=== PATIENT | female | born 1930 | race Hispanic/Latino ===

== ENCOUNTER 2018-01-09 06:11 | Inpatient (IN) | payer MEDICARE, BC ==
[2017-10-26 12:22] VITALS: BMI 25.4
[2018-01-09 07:02] LABS: PH,URINE 5.5 (4.7-8.0); URINE BILIRUBIN NEGATIVE (NEGATIVE); URINE BLOOD TRACE-INTACT (NEGATIVE); URINE GLUCOSE (UA) NEGATIVE (NEGATIVE); URINE LEUKOCYTE ESTERASE TRACE Leu/uL (NEGATIVE); URINE NITRATE NEGATIVE (NEGATIVE); URINE PROTEIN NEGATIVE mg/dL (<30 mg/dL); URINE UROBILINOGEN 0.2 E.U./dL (<1 E.U./dL)
[2018-01-09 07:03] LABS: URINE APPEARANCE CLEAR (CLEAR); URINE COLOR YELLOW (YELLOW)
[2018-01-09 07:15] LABS: INR 1.24 (0.93-1.08); PARTIAL THROMBOPLASTIN TIME 32.1 Seconds (25.1-36.5); PROTHROMBIN TIME 14.3 SECONDS (9.4-12.5)
--- NOTE | 2018-01-09 07:15 | CP.PCM.HP ---
History of Present Illness - History of Present Illness History of Present Illness: Pt is a 87 F who failed with conservative management and elected now for a right total knee replacement. Pt has no hx of bleeding disorders or blood clots Present on Admission - Present on Admission Any Indicators Present on Admission: No History of DVT/PE: No Review of Systems - Review of Systems Review of Systems: No recent illness - Musculoskeletal Musculoskeletal: As Per HPI Past Patient History - Infectious Disease Hx of Infectious Diseases: None - Past Social History Smoking Status: Never Smoked - CARDIAC Hx Cardiac Disorders: No Hx Pacemaker: No - PULMONARY Hx Respiratory Disorders: No - NEUROLOGICAL Hx Paralysis: No - HEENT Hx Cataracts: Yes - ENDOCRINE/METABOLIC Hx Endocrine Disorders: No - HEMATOLOGICAL/ONCOLOGICAL Hx Blood Disorders: No Hx Blood Transfusions: No Hx Blood Transfusion Reaction: No - MUSCULOSKELETAL/RHEUMATOLOGICAL Hx Falls: Yes Hx Osteoarthritis: Yes - GASTROINTESTINAL Hx Gastrointestinal Disorders: Yes (DIVERTICULOSIS,GI BLEED, MULTIPLE GASTRIC ULCER,DUODENAL ULCER,PYLORIC ULCE) Hx Ulcer: Yes - GENITOURINARY/GYNECOLOGICAL Hx Genitourinary Disorders: No Hx Reproductive Disorders: No - PSYCHIATRIC Hx Substance Use: No - SURGICAL HISTORY Hx Surgeries: Yes Hx Cataract Extraction: Yes - ANESTHESIA Hx Anesthesia Reactions: No Hx Malignant Hyperthermia: No Meds Allergies/Adverse Reactions: Allergies Allergy/AdvReac Type Severity Reaction Status Date / Time No Known Allergies Allergy Verified 12/19/17 12:28 Physical Exam - Constitutional Appears: Well, No Acute Distress - Head Exam Head Exam: ATRAUMATIC, NORMAL INSPECTION - Neck Exam Neck exam: Positive for: Full Rom, Normal Inspection - Respiratory Exam Respiratory Exam: NORMAL BREATHING PATTERN - Cardiovascular Exam Cardiovascular Exam: RRR - Extremities Exam Extremities exam: Positive for: normal inspection, pedal pulses present - Expanded Lower Extremities Exam Right Knee exam: normal inspection (no erythema, skin is intact. Calf soft nontender NVI distally ) - Neurological Exam Neurological exam: Alert, Oriented x3 - Psychiatric Exam Psychiatric exam: Normal Affect, Normal Mood - Skin Skin Exam: Dry, Intact, Normal Color, Warm Assessment & Plan (1) Primary osteoarthritis of right knee Assessment and Plan: NPO for right total knee replacement Repeat UA and BMP Type and screen Risks benefits and alternatives were discussed and patient verbalizes understanding and would like to proceed with a R TKA Status: Acute (2) GERD (gastroesophageal reflux disease) Status: Chronic
[2018-01-09] MEDS ORDERED: Bupivacaine 0.5% Inj(30mL) ONE ×2 (07:16→11:07)
[2018-01-09] MEDS ORDERED: Bupivacaine Liposomal Inj 20 ml INJ ONE (07:20)
[2018-01-09] MEDS ORDERED: Propofol 10 mg/ml Inj (20 ML) ONE (07:23)
[2018-01-09 07:25] LABS: URINE BACTERIA MANY (NEG)
[2018-01-09] MEDS ORDERED: Rocuronium 10 mg/ml (5 ml) ONE (07:25)
[2018-01-09] MEDS ORDERED: Succinylcholine 200 mg/10 ml Inj IV ONE (07:25)
[2018-01-09] MEDS ORDERED: Phenylephrine 10 mg/ml Inj ONE (07:25)
[2018-01-09 07:26] LABS: URINE AMORPHOUS SEDIMENT FEW
[2018-01-09] MEDS ORDERED: Bupivacaine Liposomal Inj 20 ml ONE (07:36)
[2018-01-09] MEDS ORDERED: Tranexamic Acid 2 ML ONE (07:36)
[2018-01-09 07:40] LABS: BLOOD UREA NITROGEN 17 mg/dL (7-21); CALCIUM 11.1 mg/dL (8.4-10.5); GFR AFRICAN-AMERICAN > 60; GFR NON-AFRICAN AMERICAN 52
[2018-01-09] MEDS ORDERED: cefTRIAXone (Rocephin) 1 gm Inj ONE (07:57)
[2018-01-09] MEDS ORDERED: Morphine 4 mg/ml ISec ONE (08:45)
[2018-01-09] MEDS ORDERED: Morphine 1 mg/ml preservative-free Inj(Duramorph) ONE (08:45)
[2018-01-09] MEDS ORDERED: Neostigmine Methylsulfate 3mg/3ml Syringe IV ONE ×2 (10:06)
[2018-01-09] MEDS ORDERED: Labetalol 5 mg/ml Inj 20ML ONE (10:30)
[2018-01-09] MEDS ORDERED: HYDROmorphone 0.5 mg/0.5 ml ISec IVP PRN ×2 (10:55→10:59)
[2018-01-09] MEDS ORDERED: Bupivacaine 0.25% Inj(30mL) ONE (11:23)
[2018-01-09] MEDS ORDERED: HYDROmorphone 0.5 mg/0.5 ml ISec ONE (11:29)
--- NOTE | 2018-01-09 12:21 | RAD ---
PROCEDURE: Right Knee Radiographs. HISTORY: s/p R TKA in PACU COMPARISON: None. FINDINGS: BONES: There is a right knee prosthesis in satisfactory alignment. There are no complicating factors JOINTS: Normal. No osteoarthritis. JOINT EFFUSION: None. OTHER FINDINGS: None. IMPRESSION: There is a right knee prosthesis in satisfactory alignment. There are no complicating factors
[2018-01-09] MEDS: Sodium Chloride 0.9% 1,000 ML IV SCH (12:45)
[2018-01-09] MEDS: ceFAZolin 2 GM in Sodium Chloride 0.9% 100 ML IVPB SCH (15:43)
[2018-01-09] MEDS: Multivitamin With Minerals Tab PO SCH (15:45)
--- NOTE | 2018-01-09 16:31 | PCM.SURG1 ---
Surgeon's Initial Post Op Note - Surgeon's Notes Surgeon: Gael Cummings MD Cardiac/Vascular Sonographer: Steven Parnell PA-C, Ruby Vega PA-C Type of Anesthesia: General Endo Anesthesia Administered By: Dr. Kaur Pre-Operative Diagnosis: Right knee DJD Operative Findings: tourniquet: 80 min @ 300mmHg Post-Operative Diagnosis: same Operation Performed: Right total knee replacement Specimen/Specimens Removed: bone Estimated Blood Loss: EBL {In ML}: 50 Blood Products Given: N/A Drains Used: Hemovac Post-Op Condition: Fair Date of Surgery/Procedure: 01/09/18 Time of Surgery/Procedure: 11:00
[2018-01-09] MEDS: Tranexamic Acid 1,000 MG in Sodium Chloride 0.9% 50 ML IV SCH ×2 (16:45→16:46)
[2018-01-09] MEDS: oxyCODONE 5 mg Immediate Release Tab PO PRN (18:05)
--- NOTE | 2018-01-09 21:18 | OP ---
PROCEDURE DATE: 01/09/2018 PREOPERATIVE DIAGNOSIS: Right knee arthritis. POSTOPERATIVE DIAGNOSIS: Right knee arthritis. PROCEDURE: Right total knee arthroplasty. SURGEON: Santos Cummings M.D. ASSISTANTS: Dr. Cummings is assisted by Christie Rosen, physician engineering assistant, as well as Wes Vega, physician engineering assistant. Both PA's were scrubbed and present throughout the entire case and assisted in patient positioning, retraction, and wound closure. TYPE OF ANESTHESIA: General. COMPLICATIONS: None. ESTIMATED BLOOD LOSS: 100 mL. INDICATIONS FOR PROCEDURE: This is an 87-year-old female with longstanding right knee pain. Clinical examination was consistent with some mild varus deformity, medial and lateral joint line tenderness, pain with patella grind, and pain at the extremes of knee flexion. Radiographic examination was consistent with advanced degenerative joint disease. After a period of failed nonsurgical management including activity modification, medication, steroid as well as viscosupplementation injections, recommendation was for a right knee arthroscopy. The risks, benefits, and alternatives of the procedure were discussed with the patient and informed consent was obtained. DESCRIPTION OF PROCEDURE: After the surgical site was signed and verified in the preoperative holding area, patient was taken to the operating room and placed supine on the operating room table. After administration of general anesthesia, patient received 1 g of Rocephin and 2 g of Ancef IV. Dalton catheter was inserted and tourniquet was placed about the right thigh. Care was taken to make sure all bony prominences and nerves were well padded and protected. Venodyne boot was placed on the nonoperative extremity and the right lower extremity was prepped and draped in the usual sterile fashion. The right lower extremity was then exsanguinated and the tourniquet was inflated. Approximately 10-cm longitudinal midline incision was made. Soft tissues were dissected sharply down to the knee joint. Medial parapatellar arthrotomy was performed and the anterior fat pad, menisci as well as ACL and PCL were all resected. Once the knee joint was adequately exposed, a step drill was used to drill into the medullary canal of the distal femur, and an intramedullary distal femoral cutting guide was inserted and pinned into place. Distal femoral resection was performed. Femoral component was sized and the 4-in-1 cutting block was pinned into place. Anterior and posterior resections were performed and then the box cut was performed on the femur. At this point, attention was then directed to the tibia. The extramedullary tibial guide was placed. Satisfied with the alignment, tibial resection was performed. Flexion and extension gaps were checked. Patient was noted to have full extension and flexion and stable with varus and valgus stress. At this point, the tibial component was sized and being careful to maintain proper rotation, the medullary canal of the proximal tibia was reamed and punched with the cruciate punch. At this point, with the trial tibia, trial femur, and a trial bearing in place, the knee was taken through range of motion and was noted to have full extension and flexion and stable throughout. Attention was then directed to the patella. Thickness of the patella was measured and patella resection was performed. Patellar button was sized, and the holes for patellar button were then drilled. A trial patella was placed and the knee was taken through range of motion. Patient was noted to have some mild lateral tilt and this was corrected by performing a lateral retinacular release. Once this was done, the knee was taken through range of motion and patella was noted to track normally. At this point, all the trial components were removed and the knee joint was pulse lavaged with antibiotic saline solution. The bony surfaces were dried. The actual tibial, femoral, and patellar components were cemented into place. Care was taken to make sure all excess cement was removed and the knee was held in full extension while the cement hardened. Once the cement had hardened, the wound was inspected for any debris and once again irrigated. At this point, the actual bearing was inserted and locked in placed with a cross pin. Tourniquet was deflated and any obvious bleeding was cauterized. The medium Hemovac drain was inserted and arthrotomy was closed using #1 Vicryl suture. The subcutaneous tissue was closed using 0 Vicryl and 2-0 Vicryl sutures and the skin was closed using kyree. A sterile dressing was applied and a knee immobilizer was placed. Patient was awakened and taken to the recovery room in stable condition. Santos Cummings MD
[2018-01-10] MEDS: ceFAZolin 2 GM in Sodium Chloride 0.9% 100 ML IVPB SCH (00:01)
[2018-01-10] MEDS: oxyCODONE 5 mg Immediate Release Tab PO PRN (00:04)
[2018-01-10 07:07] LABS: BASO # 0.01 K/mm3 (0.0-2.0); BASO % 0.1 % (0.0-3.0); GRAN # 8.8 (1.4-6.5); GRAN % 79.8 % (50.0-68.0); HEMOGLOBIN 9.9 g/dL (12.0-16.0); LYMPH # 1.2 (1.2-3.4); LYMPH % 10.8 % (22.0-35.0); MEAN CELL VOLUME 94.4 fl (80.0-105.0); MEAN CORPUSCULAR HEMOGLOBIN 30.8 pg (25.0-35.0); MEAN CORPUSCULAR HGB CONC 32.7 g/dl (31.0-37.0); MEAN PLATELET VOLUME 12.6 fl (7.0-11.0); MONO % 9.3 % (1.0-6.0); RBC 3.21 10^6/uL (3.5-6.1); RED CELL DISTRIBUTION WIDTH 12.6 % (11.5-14.5)
[2018-01-10 07:15] LABS: BLOOD UREA NITROGEN 16 mg/dL (7-21); CALCIUM 8.9 mg/dL (8.4-10.5); GFR AFRICAN-AMERICAN > 60; GFR NON-AFRICAN AMERICAN 59
[2018-01-10] MEDS: Sodium Chloride 0.9% 1,000 ML IV SCH (08:39)
[2018-01-10] MEDS ORDERED: Sodium Chloride 0.9% 500 ML IV STA (09:07)
[2018-01-10] MEDS: cefTRIAXone 1 gm 1 GM/100 ML BAG IVPB SCH (09:16)
[2018-01-10] MEDS: Multivitamin With Minerals Tab PO SCH (09:16)
--- NOTE | 2018-01-10 09:24 | CP.PCM.PN ---
Subjective - Date & Time of Evaluation Date of Evaluation: 01/10/18 Time of Evaluation: 09:12 - Subjective Subjective: Patient POD #1 s/p R TKA. Patient alert and awake. Patient states pain is controlled but admits to being lightheaded Pt afebrile Blood pressure 91/45 hgb 9.9 WBC 11.0 R knee: dressings dry and intact Hemovac in place on suction Calf soft nontender, negative homans NVI distally POD# 1 s/p R TKA will give 500cc bolus NSS now Will monitor labs and vitals Cont DVT prophylaxis Cont PT with WBAT Cont pain control begin discharge planning to subacute rehab facility Objective - Vital Signs/Intake and Output Vital Signs (last 24 hours): Temp Pulse Resp BP Pulse Ox 97.3 F L 69 20 120/65 88 L 01/09/18 16:50 01/09/18 16:50 01/09/18 16:50 01/09/18 16:50 01/09/18 16:50 Intake and Output: 01/10/18 01/10/18 06:59 18:59 Intake Total 240 Output Total 400 Balance -160 - Medications Medications: Current Medications Acetaminophen (Tylenol 325mg Tab) 650 mg PO Q6H [facility] Last Admin: 01/10/18 08:39 Dose: Not Given Docusate Sodium (Colace) 100 mg PO BID [facility] Last Admin: 01/09/18 17:56 Dose: Not Given Enoxaparin Sodium (Lovenox) 30 mg SC DAILY [facility] PRN Reason: Protocol Hydromorphone HCl (Dilaudid) 0.5 mg IVP Q4H PRN PRN Reason: Pain, severe (8-10) Last Admin: 01/10/18 04:40 Dose: 0.5 mg Sodium Chloride (Sodium Chloride 0.9%) 1,000 mls @ 60 mls/hr IV .[id number] [facility] Last Admin: 01/10/18 08:39 Dose: Not Given Ceftriaxone Sodium (Rocephin 1 Gram Ivpb) 1 gm in 100 mls @ 100 mls/hr IVPB DAILY [facility] PRN Reason: Protocol Stop: 01/11/18 10:59 Sodium Chloride (Sodium Chloride 0.9%) 500 mls @ 999 mls/hr IV .Q31M [facility] Stop: 01/10/18 09:37 Multivitamins/Minerals (Therapeutic-M Tab) 1 tab PO DAILY [facility] Last Admin: 01/09/18 15:45 Dose: Not Given Ondansetron HCl (Zofran Inj) 4 mg IVP ONCE PRN PRN Reason: Nausea/Vomiting Ondansetron HCl (Zofran Inj) 4 mg IVP Q6H PRN PRN Reason: Nausea/Vomiting Last Admin: 01/10/18 04:40 Dose: 4 mg Oxycodone HCl (Oxycodone Immediate Release Tab) 5 mg PO Q4H PRN PRN Reason: Pain, moderate (4-7) Last Admin: 01/10/18 00:04 Dose: 5 mg Pregabalin (Lyrica) 50 mg PO BID [facility] Last Admin: 01/09/18 18:05 Dose: 50 mg - Labs Labs: 01/10/18 06:20 01/10/18 06:20 PT 14.3 SECONDS (9.4-12.5) H 01/09/18 06:30 INR 1.24 (0.93-1.08) H 01/09/18 06:30 APTT 32.1 Seconds (25.1-36.5) 01/09/18 06:30 Assessment and Plan (1) Primary osteoarthritis of right knee Status: Acute (2) GERD (gastroesophageal reflux disease) Status: Chronic
[2018-01-10] MEDS ORDERED: Enoxaparin 30 mg Syringe SC SCH (10:00)
--- NOTE | 2018-01-10 18:55 | CON ---
DATE: HISTORY OF PRESENT ILLNESS: This is an 87-year-old woman, I have known for many years, with an essentially negative past medical history. She comes to the hospital for an elective right total knee replacement after years of worsening symptoms. I saw her in preop clearance and now seeing her in the recovery room postop. PAST MEDICAL HISTORY: Significant for arthritis. There is a distant history of hypertension. She has been otherwise well and preop labs were unremarkable. She had a stress test that was cleared by Cardiology. REVIEW OF SYSTEMS: Otherwise negative. PHYSICAL EXAMINATION: GENERAL: In recovery room, the patient was awake, answers appropriately, but was quite groggy from sedation/anesthesia. HEENT: Conjunctivae are pink. Mucous membranes are moist. NECK: Supple without masses. CARDIAC: Regular, not tachycardiac. LUNGS: Good air exchange, both right and left lungs. EXTREMITIES: She is moving all extremities, wiggling her fingers and toes, and flexing at ankles on command. IMPRESSION: 1. Severe osteoarthritis. 2. History of hypertension. 3. Status post right knee replacement, now in recovery room, awake, moving all extremities with good air exchange in right and left lung. PLAN: We will follow from medical perspective and reassess the patient in the morning. Kwan Bhatt MD
[2018-01-11 07:10] LABS: BASO # 0.01 K/mm3 (0.0-2.0); BASO % 0.1 % (0.0-3.0); EOS % 0.4 % (1.5-5.0); GRAN # 7.43 (1.4-6.5); GRAN % 75.7 % (50.0-68.0); HEMOGLOBIN 9.7 g/dL (12.0-16.0); LYMPH # 1.3 (1.2-3.4); LYMPH % 12.8 % (22.0-35.0); MEAN CELL VOLUME 93.9 fl (80.0-105.0); MEAN CORPUSCULAR HEMOGLOBIN 31.3 pg (25.0-35.0); MEAN CORPUSCULAR HGB CONC 33.3 g/dl (31.0-37.0); MEAN PLATELET VOLUME 12.9 fl (7.0-11.0); MONO # 1.1 (0.1-0.6); RBC 3.1 10^6/uL (3.5-6.1); RED CELL DISTRIBUTION WIDTH 12.8 % (11.5-14.5); WHITE BLOOD COUNT 9.8 10^3/ul (4.5-11.0)
[2018-01-11 07:39] LABS: BLOOD UREA NITROGEN 11 mg/dL (7-21); CALCIUM 9.5 mg/dL (8.4-10.5); GFR AFRICAN-AMERICAN > 60; GFR NON-AFRICAN AMERICAN > 60
--- NOTE | 2018-01-11 08:31 | CP.PCM.PN ---
Subjective - Date & Time of Evaluation Date of Evaluation: 01/11/18 Time of Evaluation: 08:21 - Subjective Subjective: Patient POD#2 s/p R TKA. Patient alert and awake, patient laying in bed comfortable. Patient states pain is controlled. VSS, afebrile WBC:9.8 Hgb 9.7 R knee: dressings removed. Incision intact, no erythema or drainage. No signs of infection or cellulitis. Hemovac removed. Incision cleaned with normal saline and new light dry sterile dressings appplied. Calf and thigh soft nontender. NVI distally POD #2 s/p R TKA Cont DVT prophylaxis Cont PT Cont pain control Cont incentive spirometer Cont discharge planning to subacute rehab facility for tomorrow Objective - Vital Signs/Intake and Output Vital Signs (last 24 hours): Temp Pulse Resp BP Pulse Ox 98.4 F 88 20 129/61 96 01/11/18 07:30 01/11/18 07:30 01/11/18 07:30 01/11/18 07:30 01/11/18 07:30 Intake and Output: 01/11/18 01/11/18 06:59 18:59 Intake Total 180 Output Total 40 Balance 140 - Medications Medications: Current Medications Acetaminophen (Tylenol 325mg Tab) 650 mg PO Q6H [facility] Last Admin: 01/11/18 04:50 Dose: Not Given Cholecalciferol (Vitamin D) 2,000 intlu PO DAILY [facility] Docusate Sodium (Colace) 100 mg PO BID [facility] Last Admin: 01/10/18 17:22 Dose: Not Given Enoxaparin Sodium (Lovenox) 40 mg SC DAILY [facility] PRN Reason: Protocol Hydromorphone HCl (Dilaudid) 0.5 mg IVP Q4H PRN PRN Reason: Pain, severe (8-10) Last Admin: 01/10/18 04:40 Dose: 0.5 mg Sodium Chloride (Sodium Chloride 0.9%) 1,000 mls @ 60 mls/hr IV .[id number] [facility] Last Admin: 01/10/18 08:39 Dose: Not Given Ceftriaxone Sodium (Rocephin 1 Gram Ivpb) 1 gm in 100 mls @ 100 mls/hr IVPB DAILY [facility] PRN Reason: Protocol Stop: 01/11/18 10:59 Last Admin: 01/10/18 09:16 Dose: 100 mls/hr Multivitamins/Minerals (Therapeutic-M Tab) 1 tab PO DAILY [facility] Last Admin: 01/10/18 09:16 Dose: 1 tab Ondansetron HCl (Zofran Inj) 4 mg IVP Q6H PRN PRN Reason: Nausea/Vomiting Last Admin: 01/10/18 04:40 Dose: 4 mg Oxycodone HCl (Oxycodone Immediate Release Tab) 5 mg PO Q4H PRN PRN Reason: Pain, moderate (4-7) Last Admin: 01/10/18 00:04 Dose: 5 mg Pregabalin (Lyrica) 50 mg PO BID [facility] Last Admin: 01/10/18 17:22 Dose: Not Given - Labs Labs: 01/11/18 06:30 01/11/18 06:30 PT 14.3 SECONDS (9.4-12.5) H 01/09/18 06:30 INR 1.24 (0.93-1.08) H 01/09/18 06:30 APTT 32.1 Seconds (25.1-36.5) 01/09/18 06:30 Assessment and Plan (1) Primary osteoarthritis of right knee Status: Acute (2) GERD (gastroesophageal reflux disease) Status: Chronic
[2018-01-11] MEDS: Cholecalciferol 1,000 INTLU TAB PO SCH (09:05)
[2018-01-11] MEDS: Enoxaparin 40 mg Syringe SC SCH (09:05)
[2018-01-11] MEDS: Multivitamin With Minerals Tab PO SCH (09:05)
[2018-01-11] MEDS: cefTRIAXone 1 gm 1 GM/100 ML BAG IVPB SCH (09:05)
[2018-01-11] MEDS: Sodium Chloride 0.9% 1,000 ML IV SCH (14:03)
[2018-01-11] MEDS: oxyCODONE 5 mg Immediate Release Tab PO PRN (17:07)
--- NOTE | 2018-01-11 19:15 | PN ---
DATE: 01/11/2018 DAILY PROGRESS NOTE SUBJECTIVE: Patient was seen this night in room 561, bed 1 with her and daughter at the bedside. She is in bed, comfortable, awake, alert and clear. Pain medicine seems to be helping although she does report some discomfort in the right knee with movement. Her vital signs are stable. Labs are acceptable. PHYSICAL EXAMINATION: LUNGS: Show good aeration, right and left. HEART: Regular, not tachycardic. EXTREMITIES: Show a wrap on the right knee. No significant edema or concern on right, none on the left. IMPRESSION: Status post right total knee replacement, doing well postoperatively. Patient and family told me she is scheduled for transfer as early as tomorrow. Kwan Bhatt MD MTDEsther
[2018-01-12] MEDS: Sodium Chloride 0.9% 1,000 ML IV SCH (06:12)
[2018-01-12 07:20] LABS: BASO # 0.02 K/mm3 (0.0-2.0); BASO % 0.2 % (0.0-3.0); EOS % 0.4 % (1.5-5.0); GRAN # 9.5 (1.4-6.5); GRAN % 83.3 % (50.0-68.0); HEMOGLOBIN 9.4 g/dL (12.0-16.0); LYMPH % 8.6 % (22.0-35.0); MEAN CELL VOLUME 93.5 fl (80.0-105.0); MEAN CORPUSCULAR HEMOGLOBIN 30.6 pg (25.0-35.0); MEAN CORPUSCULAR HGB CONC 32.8 g/dl (31.0-37.0); MEAN PLATELET VOLUME 12.6 fl (7.0-11.0); MONO # 0.9 (0.1-0.6); MONO % 7.5 % (1.0-6.0); RBC 3.07 10^6/uL (3.5-6.1); RED CELL DISTRIBUTION WIDTH 12.8 % (11.5-14.5); WHITE BLOOD COUNT 11.4 10^3/ul (4.5-11.0)
[2018-01-12 07:26] LABS: BLOOD UREA NITROGEN 11 mg/dL (7-21); CALCIUM 9.6 mg/dL (8.4-10.5); GFR AFRICAN-AMERICAN > 60; GFR NON-AFRICAN AMERICAN > 60
[2018-01-12] MEDS: Cholecalciferol 1,000 INTLU TAB PO SCH (09:43)
[2018-01-12] MEDS: Enoxaparin 40 mg Syringe SC SCH (09:44)
[2018-01-12] MEDS ORDERED: ceFAZolin 2 GM in Sodium Chloride 0.9% 100 ML IVPB SCH ×2 (10:45→14:00)
[2018-01-12] MEDS: Multivitamin With Minerals Tab PO SCH (12:02)
[2018-01-12] MEDS: Vancomycin 1gm in NS 250ml 1 GM/250 ML BAG IVPB SCH ×2 (12:02→22:00)
--- NOTE | 2018-01-12 13:42 | CP.PCM.PN ---
Subjective - Date & Time of Evaluation Date of Evaluation: 01/12/18 Time of Evaluation: 13:25 - Subjective Subjective: Patient POD #3 s/p R TKA. Patient alert and awake, sitting up in chair. Patient' s dressings were removed today and right knee appeared to be cellulitic. Patient has been afebrile WBC 11.4 Hgb 9.4 R knee: midline incision is intact. Significant effusion with diffuse amount of erythema around incision and joint, signs of cellulitis.No drainage noted. Thigh and calf are soft nontender. NVI distally POD #3 s/p R TKA ID on board Patient now on IV ancef and vanco x 7days per ID Cont DVT prophylaxis Cont PT with WBAT Will continue to monitor labs and vitals Plan to discharge to subacute rehab, [facility], tomorrow morning with IV abx Will see patient at 's office on 01/18/17 for a wound check Discussed plan with patient and her , they understand. Objective - Vital Signs/Intake and Output Vital Signs (last 24 hours): Temp Pulse Resp BP Pulse Ox 98.5 F 97 H 18 145/83 97 01/12/18 07:00 01/12/18 07:00 01/12/18 07:00 01/12/18 07:00 01/12/18 07:00 Intake and Output: 01/12/18 01/12/18 06:59 18:59 Intake Total 120 Output Total 200 Balance -80 - Medications Medications: Current Medications Acetaminophen (Tylenol 325mg Tab) 650 mg PO Q6H [facility] Last Admin: 01/12/18 13:10 Dose: Not Given Cholecalciferol (Vitamin D) 2,000 intlu PO DAILY [facility] Last Admin: 01/12/18 09:43 Dose: 2,000 intlu Docusate Sodium (Colace) 100 mg PO BID [facility] Last Admin: 01/12/18 09:43 Dose: 100 mg Enoxaparin Sodium (Lovenox) 40 mg SC DAILY [facility] PRN Reason: Protocol Last Admin: 01/12/18 09:44 Dose: 40 mg Hydromorphone HCl (Dilaudid) 0.5 mg IVP Q4H PRN PRN Reason: Pain, severe (8-10) Last Admin: 01/10/18 04:40 Dose: 0.5 mg Vancomycin HCl (Vancomycin 1gm) 1 gm in 250 mls @ 167 mls/hr IVPB Q12H [facility] PRN Reason: Protocol Last Admin: 01/12/18 12:02 Dose: 167 mls/hr Cefazolin Sodium 2 gm/ Sodium (Chloride) 100 mls @ 200 mls/hr IVPB Q8 [facility] PRN Reason: Protocol Multivitamins/Minerals (Therapeutic-M Tab) 1 tab PO DAILY [facility] Last Admin: 01/12/18 12:02 Dose: 1 tab Ondansetron HCl (Zofran Inj) 4 mg IVP Q6H PRN PRN Reason: Nausea/Vomiting Last Admin: 01/10/18 04:40 Dose: 4 mg Oxycodone HCl (Oxycodone Immediate Release Tab) 5 mg PO Q4H PRN PRN Reason: Pain, moderate (4-7) Last Admin: 01/11/18 17:07 Dose: 5 mg Pregabalin (Lyrica) 50 mg PO BID [facility] Last Admin: 01/12/18 09:44 Dose: 50 mg - Labs Labs: 01/12/18 06:30 01/12/18 06:30 PT 14.3 SECONDS (9.4-12.5) H 01/09/18 06:30 INR 1.24 (0.93-1.08) H 01/09/18 06:30 APTT 32.1 Seconds (25.1-36.5) 01/09/18 06:30 Assessment and Plan (1) Primary osteoarthritis of right knee Status: Acute (2) GERD (gastroesophageal reflux disease) Status: Chronic
[2018-01-12 17:13] VITALS: TEMP 97.8
--- NOTE | 2018-01-12 21:02 | CP.PCM.CON ---
History of Present Illness - History of Present Illness History of Present Illness: 87 year old female with PMH of diverticulosis, gastric ulcer, arthritis has been having chronic right knee pain and she underwent total right knee replacement during this admission. 3 days into the admission, she develops redness at the right knee surgical site with some pain, but no discharge or bleeding. She denies fever or chills, no nausea or vomiting, no chest pain, no SOB, no headache or dizziness, no cough or rhinorrhea, no abdominal pain, no diarrhea, no dysuria. Infectious Diseases consult is requested to further evaluate and manage. Review of Systems - Review of Systems All systems: reviewed and no additional remarkable complaints except (as per HPI ) Past Patient History - Infectious Disease Hx of Infectious Diseases: None - Past Social History Smoking Status: Never Smoked - CARDIAC Hx Cardiac Disorders: No Hx Pacemaker: No - PULMONARY Hx Respiratory Disorders: No - NEUROLOGICAL Hx Paralysis: No - HEENT Hx HEENT Problems: Yes Hx Cataracts: Yes - ENDOCRINE/METABOLIC Hx Endocrine Disorders: No - HEMATOLOGICAL/ONCOLOGICAL Hx Blood Transfusions: No Hx Blood Transfusion Reaction: No - MUSCULOSKELETAL/RHEUMATOLOGICAL Hx Arthritis: Yes Hx Falls: Yes - GASTROINTESTINAL Hx Diverticulitis: Yes - GENITOURINARY/GYNECOLOGICAL Hx Genitourinary Disorders: No Hx Reproductive Disorders: No - PSYCHIATRIC Hx Substance Use: No - SURGICAL HISTORY Hx Surgeries: Yes - ANESTHESIA Hx Anesthesia Reactions: No Hx Malignant Hyperthermia: No Meds Home Medications: Home Medication List Medication Instructions Recorded Confirmed Type Acetaminophen [Tylenol 325mg tab] 650 mg PO Q6H tab 01/12/18 Rx Cefepime [Maxipime] 1 gm IV Q8H 7 Days #21 vial 01/12/18 Rx Cholecalciferol [Vitamin D 1000 IU] 2,000 intlu PO DAILY tab 01/12/18 Rx Docusate [Colace] 100 mg PO BID cap 01/12/18 Rx Enoxaparin [Lovenox] 40 mg SC DAILY syr 01/12/18 Rx Multimineral/Multivitamin 1 tab PO DAILY tab 01/12/18 Rx [Therapeutic-M Tab] Pregabalin [Lyrica] 50 mg PO BID cap 01/12/18 Rx Vancomycin 1 GM [Vancomycin 1GM in 1 gm IVPB Q12H 7 Days #14 bag 01/12/18 Rx Normal Saline Addvantage] oxyCODONE [oxyCODONE Immediate 5 mg PO Q4H PRN tab 01/12/18 Rx Release Tab] Allergies/Adverse Reactions: Allergies Allergy/AdvReac Type Severity Reaction Status Date / Time No Known Allergies Allergy Verified 01/09/18 18:04 - Medications Medications: Current Medications Acetaminophen (Tylenol 325mg Tab) 650 mg PO Q6H [facility] Last Admin: 01/12/18 08:09 Dose: Not Given Cholecalciferol (Vitamin D) 2,000 intlu PO DAILY [facility] Last Admin: 01/12/18 09:43 Dose: 2,000 intlu Docusate Sodium (Colace) 100 mg PO BID [facility] Last Admin: 01/12/18 09:43 Dose: 100 mg Enoxaparin Sodium (Lovenox) 40 mg SC DAILY [facility] PRN Reason: Protocol Last Admin: 01/12/18 09:44 Dose: 40 mg Hydromorphone HCl (Dilaudid) 0.5 mg IVP Q4H PRN PRN Reason: Pain, severe (8-10) Last Admin: 01/10/18 04:40 Dose: 0.5 mg Vancomycin HCl (Vancomycin 1gm) 1 gm in 250 mls @ 167 mls/hr IVPB Q12H [facility] PRN Reason: Protocol Cefazolin Sodium 2 gm/ Sodium (Chloride) 100 mls @ 200 mls/hr IVPB Q8 [facility] PRN Reason: Protocol Multivitamins/Minerals (Therapeutic-M Tab) 1 tab PO DAILY [facility] Last Admin: 01/11/18 09:05 Dose: 1 tab Ondansetron HCl (Zofran Inj) 4 mg IVP Q6H PRN PRN Reason: Nausea/Vomiting Last Admin: 01/10/18 04:40 Dose: 4 mg Oxycodone HCl (Oxycodone Immediate Release Tab) 5 mg PO Q4H PRN PRN Reason: Pain, moderate (4-7) Last Admin: 01/11/18 17:07 Dose: 5 mg Pregabalin (Lyrica) 50 mg PO BID [facility] Last Admin: 01/12/18 09:44 Dose: 50 mg Physical Exam - Constitutional Appears: Non-toxic - Head Exam Head Exam: NORMAL INSPECTION - ENT Exam ENT Exam: Mucous Membranes Moist - Neck Exam Neck exam: Negative for: Meningismus - Respiratory Exam Respiratory Exam: Decreased Breath Sounds - Cardiovascular Exam Cardiovascular Exam: +S1, +S2 - GI/Abdominal Exam GI & Abdominal Exam: Soft, Tenderness - Extremities Exam Additional comments: right knee surgical site with surrounding erythema and some tenderness noted, no pus, no discharge, no bleeding Results - Vital Signs Recent Vital Signs: Last Vital Signs Temp 98.5 F 01/12/18 07:00 Pulse 97 H 01/12/18 07:00 Resp 18 01/12/18 07:00 BP 145/83 01/12/18 07:00 Pulse Ox 97 01/12/18 07:00 - Labs Result Diagrams: 01/12/18 06:30 01/12/18 06:30 Labs: Laboratory Results - last 24 hr 01/12/18 01/12/18 06:30 06:30 WBC 11.4 H RBC 3.07 L Hgb 9.4 L Hct 28.7 L MCV 93.5 MCH 30.6 MCHC 32.8 RDW 12.8 Plt Count 118 L MPV 12.6 H Gran % 83.3 H Lymph % (Auto) 8.6 L Branch % (Auto) 7.5 H Eos % (Auto) 0.4 L Baso % (Auto) 0.2 Gran # 9.50 H Lymph # (Auto) 1.0 L Branch # (Auto) 0.9 H Eos # (Auto) 0.0 Baso # (Auto) 0.02 Sodium 140 Potassium 3.6 Chloride 106 Carbon Dioxide 26 Anion Gap 11 BUN 11 Creatinine 0.7 Est GFR ( Amer) > 60 Est GFR (Non-Af Amer) > 60 Random Glucose 124 H Calcium 9.6 Assessment & Plan - Assessment and Plan (Free Text) Plan: Assessment Consider right knee surgical site skin and skin structure infection S/P right total knee replacement POD #3 diverticulosis gastric ulcer arthritis Plan started Vancomycin and Cefepime; follow up blood cx will monitor clinically
[2018-01-12] MEDS: Cefepime IV 2 gm in NS 2 GM/100 ML BAG IVPB SCH (21:48)
[2018-01-13] MEDS: Cefepime IV 2 gm in NS 2 GM/100 ML BAG IVPB SCH (05:15)
[2018-01-13 07:30] VITALS: BP 133/70; PULSE 74; RESP 20; O2SAT 99
[2018-01-13 08:48] LABS: BLOOD UREA NITROGEN 10 mg/dL (7-21); CALCIUM 9.6 mg/dL (8.4-10.5); GFR AFRICAN-AMERICAN > 60; GFR NON-AFRICAN AMERICAN > 60
[2018-01-13 08:54] LABS: BASO # 0.02 K/mm3 (0.0-2.0); BASO % 0.2 % (0.0-3.0); EOS # 0.2 (0.0-0.7); EOS % 2.6 % (1.5-5.0); GRAN # 6.1 (1.4-6.5); HEMOGLOBIN 8.7 g/dL (12.0-16.0); LYMPH # 1.1 (1.2-3.4); LYMPH % 12.9 % (22.0-35.0); MEAN CELL VOLUME 93.9 fl (80.0-105.0); MEAN CORPUSCULAR HEMOGLOBIN 31.2 pg (25.0-35.0); MEAN CORPUSCULAR HGB CONC 33.2 g/dl (31.0-37.0); MONO # 0.8 (0.1-0.6); MONO % 9.3 % (1.0-6.0); RBC 2.79 10^6/uL (3.5-6.1); RED CELL DISTRIBUTION WIDTH 12.8 % (11.5-14.5); WHITE BLOOD COUNT 8.1 10^3/ul (4.5-11.0)
[2018-01-13] MEDS: Multivitamin With Minerals Tab PO SCH (10:00)
[2018-01-13] MEDS: Cholecalciferol 1,000 INTLU TAB PO SCH (10:00)
[2018-01-13] MEDS: Enoxaparin 40 mg Syringe SC SCH (10:01)
[2018-01-13] MEDS: Vancomycin 1gm in NS 250ml 1 GM/250 ML BAG IVPB SCH (10:07)
[2018-01-13] MEDS ORDERED: Potassium Chloride 20 mEq ER Tab PO STA (10:50)
--- NOTE | 2018-01-13 11:27 | CP.PCM.PN ---
Subjective - Date & Time of Evaluation Date of Evaluation: 01/13/18 Time of Evaluation: 11:25 - Subjective Subjective: Pt awake, alert. Feeling better. Afebrile, VSS R knee dressing changed erythema slightly improved thigh and calf soft NT NVI distally WBC 8.1 Hg 8.7 POD 4 Stable for d/c to rehab cont IV antibiotics, DVT prophylaxis f/u in office on 01/18 for wound check Objective - Vital Signs/Intake and Output Vital Signs (last 24 hours): Temp Pulse Resp BP Pulse Ox 97.8 F 74 20 133/70 99 01/13/18 07:30 01/13/18 07:30 01/13/18 07:30 01/13/18 07:30 01/13/18 07:30 Intake and Output: 01/13/18 01/13/18 06:59 18:59 Intake Total 300 Output Total 400 Balance -100 - Medications Medications: Current Medications Acetaminophen (Tylenol 325mg Tab) 650 mg PO Q6H [facility] Last Admin: 01/13/18 06:50 Dose: Not Given Cholecalciferol (Vitamin D) 2,000 intlu PO DAILY [facility] Last Admin: 01/13/18 10:00 Dose: 2,000 intlu Docusate Sodium (Colace) 100 mg PO BID [facility] Last Admin: 01/13/18 10:00 Dose: 100 mg Enoxaparin Sodium (Lovenox) 40 mg SC DAILY [facility] PRN Reason: Protocol Last Admin: 01/13/18 10:01 Dose: 40 mg Vancomycin HCl (Vancomycin 1gm) 1 gm in 250 mls @ 167 mls/hr IVPB Q12H [facility] PRN Reason: Protocol Last Admin: 01/13/18 10:07 Dose: 167 mls/hr Cefepime HCl (Maxipime 2gm) 2 gm in 100 mls @ 100 mls/hr IVPB Q8 [facility] PRN Reason: Protocol Stop: 01/17/18 22:01 Last Admin: 01/13/18 05:15 Dose: 100 mls/hr Multivitamins/Minerals (Therapeutic-M Tab) 1 tab PO DAILY [facility] Last Admin: 01/13/18 10:00 Dose: 1 tab Ondansetron HCl (Zofran Inj) 4 mg IVP Q6H PRN PRN Reason: Nausea/Vomiting Last Admin: 01/10/18 04:40 Dose: 4 mg Oxycodone HCl (Oxycodone Immediate Release Tab) 5 mg PO Q4H PRN PRN Reason: Pain, moderate (4-7) Last Admin: 01/11/18 17:07 Dose: 5 mg Pregabalin (Lyrica) 50 mg PO BID [facility] Last Admin: 01/13/18 10:00 Dose: 50 mg - Labs Labs: 01/13/18 08:26 01/13/18 08:26 PT 14.3 SECONDS (9.4-12.5) H 01/09/18 06:30 INR 1.24 (0.93-1.08) H 01/09/18 06:30 APTT 32.1 Seconds (25.1-36.5) 01/09/18 06:30
== END 2018-01-13 12:02 | DRG 470 ==
LOC: SDAINP 06:11 → EDSTATUS 07:30 → 5RNO 12:31
PROVIDERS: ADMIT Orthopaedic Surgery; ATTEND Orthopaedic Surgery
PROC: 0SRC0J9 Replacement of Right Knee Joint with Synthetic Substitute, Cemented, Open Approach (ICD-10-PCS; principal; 2018-01-09 07:30)
DX: M17.11 Unilateral primary osteoarthritis, right knee (principal); G89.29 Other chronic pain; I10 Essential (primary) hypertension; K21.9 Gastro-esophageal reflux disease without esophagitis; K57.90 Diverticulosis of intestine, part unspecified, without perforation or abscess without bleeding; Z87.11 Personal history of peptic ulcer disease

== ENCOUNTER 2018-01-25 20:48 | Observation (INO) | payer MEDICARE, BC ==
[2018-01-25 21:14] VITALS: BMI 18.3
--- NOTE | 2018-01-25 21:43 | ED PDOC ---
Arrival/HPI - General Chief Complaint: Altered Mental Status Time Seen by Provider: 01/25/18 21:00 Historian: Patient, Spouse - History of Present Illness Narrative History of Present Illness (Text): 01/25/18 21:34 An 87 year old female, whose past medical history includes arthritis, presents to the emergency department via EMS accompanied by for complaints of increasing confusion over the past 48 hours. The patient [place] right [place] [facility] [place] was observed for 2 days before she was discharged home. She had been attending rehabilitation at [facility]. The patient's states that over the past 2 days the patient has become more confused. She began making random unintelligible comments and stating that there are people present that are really not in the room. The family became concerned that she may have an infection. The facility she was in was going to evaluate her a UTI, but they did not. The patient's notes that the patient's leg has not become more swollen, red, or warm. The patient denies fevers, chills, headache, dizziness, chest pain, shortness of breath, dyspnea on exertion, cough, abdominal pain, nausea, vomiting, diarrhea, back pain, neck pain, urinary/bowel changes, or any other somatic complaint. PMD: Dr. Marlon Bhatt Time/Duration: Other (48 hours) Symptom Onset: Sudden Symptom Course: Unchanged Activities at Onset: Rest, Light Context: Home Past Medical History - Provider Review Nursing Documentation Reviewed: Yes - Infectious Disease Hx of Infectious Diseases: None - Cardiac Hx Cardiac Disorders: No Hx Pacemaker: No - Pulmonary Hx Respiratory Disorders: No - Neurological Hx Paralysis: No - HEENT Hx HEENT Disorder: Yes Hx Cataracts: Yes - Endocrine/Metabolic Hx Endocrine Disorders: No - Hematological/Oncological Hx Blood Transfusions: No Hx Blood Transfusion Reaction: No - Musculoskeletal/Rheumatological Hx Arthritis: Yes Hx Falls: Yes - Gastrointestinal Hx Diverticulitis: Yes - Genitourinary/Gynecological Hx Genitourinary Disorders: No Hx Reproductive Disorders: No - Psychiatric Hx Emotional Abuse: No Hx Physical Abuse: No Hx Substance Use: No - Surgical History Hx Cataract Extraction: Yes - Anesthesia Hx Anesthesia Reactions: No Hx Malignant Hyperthermia: No - Suicidal Assessment Feels Threatened In Home Enviroment: No Family/Social History - Physician Review Nursing Documentation Reviewed: Yes Family/Social History: No Known Family HX Smoking Status: Never Smoked Hx Alcohol Use: No Hx Substance Use: No Allergies/Home Meds Allergies/Adverse Reactions: Allergies No Known Allergies Allergy (Verified 01/09/18 18:04) VERIFIED WITH NPATIENT Home Medications: Home Meds Medication Instructions Recorded Confirmed Acetaminophen [Tylenol 325mg tab] 650 mg PO Q6H PRN 01/25/18 01/25/18 Docusate [Colace] 200 mg PO HS 01/25/18 01/25/18 Pregabalin [Lyrica] 50 mg PO Q12H 01/25/18 01/25/18 Review of Systems - Physician Review All systems were reviewed & negative as marked: Yes - Review of Systems Constitutional: absent: Fevers, Night Sweats Respiratory: absent: SOB, Cough Cardiovascular: [place]. absent: Chest Pain Gastrointestinal: absent: Abdominal Pain, Diarrhea, Nausea, Vomiting Musculoskeletal: absent: Back Pain, Neck Pain Neurological: absent: Headache, Dizziness Psychiatric: Other (Increased confusion over the past 48 hours. ) Physical Exam Vital Signs Reviewed: Yes Vital Signs Temp Pulse Resp BP Pulse Ox 01/25/18 21:16 97.9 F 105 H 18 160/79 H 95 Temperature: Afebrile Blood Pressure: Hypertensive Pulse: Tachycardic Respiratory Rate: Normal Appearance: Positive for: Well-Appearing, Non-Toxic, Comfortable Pain Distress: None Mental Status: Positive for: Confused - Systems Exam Head: Present: Atraumatic, Normocephalic Pupils: Present: PERRL Extroacular Muscles: Present: EOMI Conjunctiva: Present: Normal Mouth: Present: Moist Mucous Membranes Neck: Present: Normal Range of Motion Respiratory/Chest: Present: Clear to Auscultation, Good Air Exchange. No: Respiratory Distress, Accessory Muscle Use Cardiovascular: Present: Regular Rate and Rhythm, Normal S1, S2. No: Murmurs Abdomen: Present: Normal Bowel Sounds. No: Tenderness, Distention, Peritoneal Signs Back: Present: Normal Inspection Upper Extremity: Present: Normal Inspection. No: Cyanosis, Edema Lower Extremity: Present: Normal ROM (Normal ROM of right knee. ). No: Edema, Swelling Neurological: Present: GCS=15, CN II-XII Intact, Speech Normal Skin: Present: Warm (Right knee warmer than left. ), Dry, Erythematous (Right knee more red than left), Other (No drainage. Steri strips in place. ). No: Rashes Psychiatric: Present: Alert, Oriented x 3 Medical Decision Making ED Course and Treatment: 01/25/18 21:49 Impression: An 87 year old female presents to the emergency department accompanied by complaining of increased confusion over the last 48 hours s/p a knee replacement surgery 2 weeks ago. Plan: -- Head CT -- Chest X-ray -- Urinalysis -- Urine/ Blood Culture -- Labs -- Reassess and disposition Progress Notes: EKG: Ordered, reviewed, and independently interpreted the EKG. Rate : 102 BPM Rhythm : Sinus Tachycardia with occasional premature ventricular complexes. CT Head Without Intravenous Contrast Dictated and Authenticated by: Eloina Lackey MD 01/26/2018 12:32 AM Eastern Time ([place] & [place]) IMPRESSION: No CT evidence of acute intracranial abnormality. Significant chronic changes as above. Acute infarcts/early ischemic changes may not be detectable by this modality; MRI is more sensitive in detecting acute ischemia. 01/26/18 01:15: Case discussed in detail with Dr. Marlon Bhatt who accepts patient to his service. Requests Dr. Copeland and Dr. Thapa on consult. - Lab Interpretations Lab Results: 01/25/18 21:30 01/25/18 21:30 Lab Results 01/26/18 01:06: POC Glucose (mg/dL) 91 01/25/18 23:28: Urine Color Straw, Urine Appearance Clear, Urine pH 6.5, Ur Specific Counselor 1.025, Urine Protein 100 H, Urine Glucose (UA) Negative, Urine Ketones Negative, Urine Blood Small H, Urine Nitrate Negative, Urine Bilirubin Negative, Urine Urobilinogen 0.2, Ur Leukocyte Esterase Trace H, Urine RBC 0 - 2 , Urine WBC 2 - 5, Ur Epithelial Cells 1 - 3, Urine Bacteria Rare 01/25/18 21:30: Sodium 144, Chloride 105, Potassium 4.6, Carbon Dioxide 33, Anion Gap 11, BUN 21, Creatinine 1.1, Est GFR ( Amer) 57, Est GFR (Non- Af Amer) 47, Random Glucose 97, Calcium 11.7 H, Total Bilirubin 0.4, AST 32, ALT 30, Alkaline Phosphatase 74, Lactate Dehydrogenase 851 H, Total Creatine Kinase 27 L, Troponin I < 0.01, Total Protein 6.8, Albumin 3.5, Globulin 3.3, Albumin/Globulin Ratio 1.1 01/25/18 21:30: pO2 41, VBG pH 7.37, VBG pCO2 58.0, VBG HCO3 33.5 H, VBG Total CO2 35.3 H, VBG O2 Sat (Calc) 81.6 H, VBG Base Excess 6.4 H, VBG Potassium 4.5, Sodium 144.0, Chloride 110.0 H, Glucose 101, Lactate 1.0, FiO2 21.0, Venous Blood Potassium 4.5 01/25/18 21:30: PT 15.9 H, INR 1.39 H 01/25/18 21:30: WBC 10.1 D, RBC 3.08 L, Hgb 9.4 L, Hct 29.3 L, MCV 95.1, MCH 30.5, MCHC 32.1, RDW 14.1, Plt Count 357, MPV 11.2 H, Gran % 75.6 H, Lymph % ( Auto) 15.1 L, [place] % (Auto) 6.6 H, Eos % (Auto) 2.2, Baso % (Auto) 0.5, Gran # 7.65 H, Lymph # (Auto) 1.5, [place] # (Auto) 0.7 H, Eos # (Auto) 0.2, Baso # (Auto ) 0.05 - RAD Interpretation Radiology Orders: 01/25/18 21:45 HEAD W/O CONTRAST [CT] Stat CHEST PORTABLE [RAD] Stat - Medication Orders Current Medication Orders: Discontinued Medications Sodium Chloride (Sodium Chloride 0.9%) 500 mls @ 999 mls/hr IV .Q31M STA Stop: 01/25/18 23:42 Last Admin: 01/26/18 00:09 Dose: 999 mls/hr eMAR Start Stop Document 01/26/18 00:09 IT (Rec: 01/26/18 00:09 IT [id number]) Intravenous Solution Start Date 01/26/18 Start Time 00:09 Ceftriaxone Sodium (Rocephin 1 Gram Ivpb) 1 gm in 100 mls @ 200 mls/hr IVPB STAT STA PRN Reason: Protocol Stop: 01/26/18 01:10 Last Admin: 01/26/18 01:13 Dose: 200 mls/hr eMAR Start Stop Document 01/26/18 01:13 IT (Rec: 01/26/18 01:13 IT [id number]) Intravenous Solution Start Date 01/26/18 Start Time 01:13 End Date 01/26/18 - Scribe Statement The provider has reviewed the documentation as recorded by the Scribe Kiki Hawkins Provider Scribe Attestation: All medical record entries made by the Scribe were at my direction and personally dictated by me. I have reviewed the chart and agree that the record accurately reflects my personal performance of the history, physical exam, medical decision making, and the department course for this patient. I have also personally directed, reviewed, and agree with the discharge instructions and disposition. Disposition/Present on Arrival - Present on Arrival Any Indicators Present on Arrival: No History of DVT/PE: No History of Uncontrolled Diabetes: No Urinary Catheter: Yes History of Decub. Ulcer: No History Surgical Site Infection Following: Orthopedic Procedures - Disposition Have Diagnosis and Disposition been Completed?: Yes Diagnosis: Altered mental status, UTI (urinary tract infection) Disposition: HOSPITALIZED Disposition Time: 01:41 Patient Plan: Admission Condition: FAIR Referrals: Kwan Bhatt MD [Primary Care Provider] - Follow up with primary Forms: [employer] (Armenian)
[2018-01-25 22:03] LABS: VENOUS BLOOD GAS BASE EXCESS 6.4 mmol/L (0.0-2.0); VENOUS BLOOD GAS PO2 41 mm/Hg (30-55); VENOUS BLOOD PH 7.37 (7.32-7.43)
[2018-01-25 22:04] LABS: BASO # 0.05 K/mm3 (0.0-2.0); BASO % 0.5 % (0.0-3.0); EOS # 0.2 (0.0-0.7); EOS % 2.2 % (1.5-5.0); GRAN # 7.65 (1.4-6.5); GRAN % 75.6 % (50.0-68.0); HEMOGLOBIN 9.4 g/dL (12.0-16.0); LYMPH # 1.5 (1.2-3.4); LYMPH % 15.1 % (22.0-35.0); MEAN CELL VOLUME 95.1 fl (80.0-105.0); MEAN CORPUSCULAR HEMOGLOBIN 30.5 pg (25.0-35.0); MEAN CORPUSCULAR HGB CONC 32.1 g/dl (31.0-37.0); MEAN PLATELET VOLUME 11.2 fl (7.0-11.0); MONO # 0.7 (0.1-0.6); MONO % 6.6 % (1.0-6.0); RBC 3.08 10^6/uL (3.5-6.1); RED CELL DISTRIBUTION WIDTH 14.1 % (11.5-14.5); WHITE BLOOD COUNT 10.1 10^3/ul (4.5-11.0)
[2018-01-25 22:17] LABS: ALB/GLOB RATIO 1.1 (1.1-1.8); ALBUMIN 3.5 g/dL (3.0-4.8); ALT/SGPT 30 U/L (7-56); AST/SGOT 32 U/L (14-36); BLOOD UREA NITROGEN 21 mg/dL (7-21); CALCIUM 11.7 mg/dL (8.4-10.5); GFR AFRICAN-AMERICAN 57; GFR NON-AFRICAN AMERICAN 47; INR 1.39 (0.93-1.08); PROTHROMBIN TIME 15.9 SECONDS (9.4-12.5)
[2018-01-25 22:24] LABS: TROPONIN I < 0.01 ng/mL
[2018-01-25] MEDS ORDERED: Sodium Chloride 0.9% 500 ML IV STA (23:12)
[2018-01-25 23:37] LABS: PH,URINE 6.5 (4.7-8.0); URINE BILIRUBIN NEGATIVE (NEGATIVE); URINE BLOOD SMALL (NEGATIVE); URINE GLUCOSE (UA) NEGATIVE (NEGATIVE); URINE LEUKOCYTE ESTERASE TRACE Leu/uL (NEGATIVE); URINE PROTEIN 100 mg/dL (<30 mg/dL); URINE UROBILINOGEN 0.2 E.U./dL (<1 E.U./dL)
[2018-01-25 23:40] LABS: URINE APPEARANCE CLEAR (CLEAR); URINE COLOR STRAW (YELLOW)
[2018-01-26 00:01] LABS: URINE BACTERIA RARE (NEG); URINE RBC 0 - 2 /hpf (0-2)
--- NOTE | 2018-01-26 00:32 | CT ---
EXAM: CT Head Without Intravenous Contrast CLINICAL HISTORY: 87 years old, female; Signs and symptoms; Altered mental status/memory loss; Additional info: Confusion TECHNIQUE: Axial computed tomography images of the head/brain without intravenous contrast. All CT scans at this facility use one or more dose reduction techniques, viz.: automated exposure control; ma/kV adjustment per patient size (including targeted exams where dose is matched to indication; i.e. head); or iterative reconstruction technique. Coronal and sagittal reformatted images were created and reviewed. COMPARISON: No relevant prior studies available. FINDINGS: Brain: Extensive bilateral white matter changes. This is nonspecific and may include microangiopathic disease, small lacunae of indeterminate chronicity, chronic infarcts and/or encephalomalacia. Atrophy. Vascular calcification. No hemorrhage. No edema. Ventricles: No hydrocephalus. Bones: Skull is intact. Sinuses: No acute sinusitis. Mastoid air cells: No mastoid effusion. IMPRESSION: No CT evidence of acute intracranial abnormality. Significant chronic changes as above. Acute infarcts/early ischemic changes may not be detectable by this modality; MRI is more sensitive in detecting acute ischemia.
[2018-01-26] MEDS ORDERED: cefTRIAXone 1 gm 1 GM/100 ML BAG IVPB STA (00:41)
[2018-01-26] MEDS ORDERED: Oxycodone/Acetaminophen 5/325 mg Tab PO PRN (08:19)
[2018-01-26] MEDS ORDERED: Dextrose 5%/0.45% NS 1,000 ML IV SCH (08:30)
[2018-01-26 08:33] VITALS: BP 177/89; PULSE 91; RESP 19; TEMP 97.4; O2SAT 95
[2018-01-26 09:25] LABS: ALBUMIN 3.4 g/dL (3.0-4.8); ALT/SGPT 27 U/L (7-56); AST/SGOT 32 U/L (14-36); BLOOD UREA NITROGEN 17 mg/dL (7-21); CALCIUM 11.1 mg/dL (8.4-10.5); GFR AFRICAN-AMERICAN > 60; GFR NON-AFRICAN AMERICAN 52
--- NOTE | 2018-01-26 09:32 | RAD ---
HISTORY: Confusion COMPARISON: 12/19/2017 FINDINGS: LUNGS: No active pulmonary disease. PLEURA: No significant pleural effusion identified, no pneumothorax apparent. CARDIOVASCULAR: Normal. OSSEOUS STRUCTURES: No significant abnormalities. VISUALIZED UPPER ABDOMEN: Normal. OTHER FINDINGS: None. IMPRESSION: No active disease.
[2018-01-26 09:36] LABS: BASO # 0.05 K/mm3 (0.0-2.0); BASO % 0.6 % (0.0-3.0); EOS # 0.2 (0.0-0.7); EOS % 2.9 % (1.5-5.0); GRAN # 5.89 (1.4-6.5); GRAN % 71.5 % (50.0-68.0); HEMOGLOBIN 9.1 g/dL (12.0-16.0); LYMPH # 1.5 (1.2-3.4); LYMPH % 17.8 % (22.0-35.0); MEAN CELL VOLUME 94.3 fl (80.0-105.0); MEAN CORPUSCULAR HEMOGLOBIN 30.5 pg (25.0-35.0); MEAN CORPUSCULAR HGB CONC 32.4 g/dl (31.0-37.0); MEAN PLATELET VOLUME 10.7 fl (7.0-11.0); MONO # 0.6 (0.1-0.6); MONO % 7.2 % (1.0-6.0); RBC 2.98 10^6/uL (3.5-6.1); RED CELL DISTRIBUTION WIDTH 14.1 % (11.5-14.5); WHITE BLOOD COUNT 8.2 10^3/ul (4.5-11.0)
[2018-01-26] MEDS ORDERED: cefTRIAXone 1 gm 1 GM/100 ML BAG IVPB SCH (16:00)
--- NOTE | 2018-01-26 17:59 | CP.PCM.CON ---
History of Present Illness - History of Present Illness History of Present Illness: 87 year old female with PMH of diverticulosis, gastric ulcer, arthritis, S/P knee replacement 1 month ago was sent to [facility] for rehab after the knee replacement was done. She had some erythema over the said area and was treated for surgical site cellulitis with antibiotics. She was doing well until about 2 days ago when apparently she was having increased confusion. There was no note of fever, no vomiting, no convulsions, no diarrhea. The patient is awake but is confused to place and time and she has problem with her memory. Infectious Diseases consult is requested to further evaluate and manage. Review of Systems - Review of Systems All systems: reviewed and no additional remarkable complaints except (as per HPI ) Past Patient History - Infectious Disease Hx of Infectious Diseases: None - Past Social History Smoking Status: Never Smoked - CARDIAC Hx Cardiac Disorders: No Hx Pacemaker: No - PULMONARY Hx Respiratory Disorders: No - NEUROLOGICAL Hx Paralysis: No - HEENT Hx HEENT Problems: Yes Hx Cataracts: Yes - ENDOCRINE/METABOLIC Hx Endocrine Disorders: No - HEMATOLOGICAL/ONCOLOGICAL Hx Blood Transfusions: No Hx Blood Transfusion Reaction: No - MUSCULOSKELETAL/RHEUMATOLOGICAL Hx Arthritis: Yes Hx Falls: Yes - GASTROINTESTINAL Hx Diverticulitis: Yes - GENITOURINARY/GYNECOLOGICAL Hx Genitourinary Disorders: No Hx Reproductive Disorders: No - PSYCHIATRIC Hx Emotional Abuse: No Hx Physical Abuse: No Hx Substance Use: No - SURGICAL HISTORY Hx Cataract Extraction: Yes - ANESTHESIA Hx Anesthesia Reactions: No Hx Malignant Hyperthermia: No Meds Allergies/Adverse Reactions: Allergies Allergy/AdvReac Type Severity Reaction Status Date / Time No Known Allergies Allergy Verified 01/09/18 18:04 Physical Exam - Constitutional Appears: Chronically Ill - Head Exam Head Exam: NORMAL INSPECTION - ENT Exam ENT Exam: Mucous Membranes Moist - Neck Exam Neck exam: Negative for: Meningismus - Respiratory Exam Respiratory Exam: Decreased Breath Sounds - Cardiovascular Exam Cardiovascular Exam: +S1, +S2 - GI/Abdominal Exam GI & Abdominal Exam: Soft. absent: Tenderness Results - Vital Signs Recent Vital Signs: Last Vital Signs Temp 98.1 F 01/26/18 01:50 Pulse 82 01/26/18 01:50 Resp 18 01/26/18 01:50 BP 145/78 01/26/18 01:50 Pulse Ox 98 01/26/18 01:50 - Labs Result Diagrams: 01/26/18 09:00 03/16/18 09:00 Assessment & Plan - Assessment and Plan (Free Text) Plan: Assessment confusion, R/O dementia, R/O sepsis history of right knee surgical site skin and skin structure infection S/P right total knee replacement diverticulosis gastric ulcer arthritis Plan patient started on Ceftriaxone and follow up blood and urine cx; CXR does not show infiltrates follow up Neuro evaluation
== END 2018-01-26 16:18 ==
LOC: ED 20:48 → ERH 01-26 01:33 → INTOOBSV 01-26 01:33 → ERH 01-26 01:49 → 3RNO 01-26 02:08
PROVIDERS: ADMIT Internal Medicine; ATTEND Internal Medicine
DX: N39.0 Urinary tract infection, site not specified (principal); K57.90 Diverticulosis of intestine, part unspecified, without perforation or abscess without bleeding; K25.9 Gastric ulcer, unspecified as acute or chronic, without hemorrhage or perforation; Z96.651 Presence of right artificial knee joint
CPT/HCPCS: 36415; 70450; 71045; 80053; 81001; 82550; 82803; 82948; 83615; 83735; 84100; 84145; 84484; 85025; 85610; 87040; 87086; 96374; 99285; G0378; J0696; J7040; J7042

== ENCOUNTER 2018-11-19 08:05 | Observation (INO) | payer BC, MEDICARE ==
[2018-11-19 08:12] VITALS: BMI 24.7
[2018-11-19 08:50] LABS: BASO # 0.02 K/mm3 (0.0-2.0); BASO % 0.2 % (0.0-3.0); EOS # 0.1 (0.0-0.7); EOS % 0.7 % (1.5-5.0); GRAN # 9.55 (1.4-6.5); GRAN % 78.4 % (50.0-68.0); HEMOGLOBIN 11.4 g/dL (12.0-16.0); LYMPH # 1.9 (1.2-3.4); LYMPH % 15.4 % (22.0-35.0); MEAN CORPUSCULAR HGB CONC 32.9 g/dl (31.0-37.0); MEAN PLATELET VOLUME 10.9 fl (7.0-11.0); MONO # 0.7 (0.1-0.6); MONO % 5.3 % (1.0-6.0); RBC 3.68 10^6/uL (3.5-6.1); RED CELL DISTRIBUTION WIDTH 13.2 % (11.5-14.5); WHITE BLOOD COUNT 12.2 10^3/uL (4.5-11.0)
[2018-11-19 08:52] LABS: VENOUS BLOOD GAS BASE EXCESS 2.6 mmol/L (0.0-2.0); VENOUS BLOOD GAS PO2 191 mm/Hg (30-55); VENOUS BLOOD PH 7.43 (7.32-7.43)
--- NOTE | 2018-11-19 08:54 | ED PDOC ---
Arrival/HPI - General Chief Complaint: Weakness/Neurological Deficit Time Seen by Provider: 11/19/18 08:11 Historian: Patient - History of Present Illness Narrative History of Present Illness (Text): 11/19/18 08:51 88 year old female, whose past medical history includes chronic rt shoulder pain, who presents to the Emergency department complaining of general weakness and fatigue x 2 weeks that worsened over night. Patient also notes urinary frequency. Patient denies any fevers, chills, nausea, vomiting, diarrhea, headache, or any other complaints. Time/Duration: < month (2 weeks) Symptom Onset: Gradual Symptom Course: Unchanged Activities at Onset: Light Context: Home Associated Symptoms (Text): 11/19/18 09:13 Presents to the emergency department from home accompanied by her daughter. Complains of chronic right shoulder pain. Daughter reports generalized weakness and fatigue for the last several weeks, worse over the last day or so. No fever or chills. No chest pain palpitations or dyspnea. No abdominal pain nausea or vomiting. She does have some urinary frequency. Past Medical History - Provider Review Nursing Documentation Reviewed: Yes - Infectious Disease Hx of Infectious Diseases: None - Reproductive Menopause: Yes - Cardiac Hx Cardiac Disorders: No Hx Pacemaker: No - Pulmonary Hx Respiratory Disorders: No - Neurological Hx Paralysis: No - HEENT Hx HEENT Disorder: Yes Hx Cataracts: Yes - Renal Hx Renal Disorder: No - Endocrine/Metabolic Hx Endocrine Disorders: No - Hematological/Oncological Hx Blood Transfusions: No Hx Blood Transfusion Reaction: No - Integumentary Hx Dermatological Disorder: No - Musculoskeletal/Rheumatological Hx Arthritis: Yes Hx Falls: Yes - Gastrointestinal Hx Diverticulitis: Yes - Genitourinary/Gynecological Hx Genitourinary Disorders: No Hx Reproductive Disorders: No - Psychiatric Hx Emotional Abuse: No Hx Physical Abuse: No Hx Substance Use: No - Surgical History Hx Cataract Extraction: Yes - Anesthesia Hx Anesthesia Reactions: No Hx Malignant Hyperthermia: No - Suicidal Assessment Feels Threatened In Home Enviroment: No Family/Social History - Physician Review Nursing Documentation Reviewed: Yes Family/Social History: Unknown Family HX Smoking Status: Never Smoked Hx Alcohol Use: No Hx Substance Use: No Allergies/Home Meds Allergies/Adverse Reactions: Allergies No Known Allergies Allergy (Verified 01/09/18 18:04) VERIFIED WITH NPATIENT Home Medications: Home Meds Medication Instructions Recorded Confirmed Acetaminophen [Tylenol 325mg tab] 650 mg PO Q6H PRN 01/25/18 01/25/18 Docusate [Colace] 200 mg PO HS 01/25/18 01/25/18 Pregabalin [Lyrica] 50 mg PO Q12H 01/25/18 01/25/18 Review of Systems - Physician Review All systems were reviewed & negative as marked: Yes - Review of Systems Constitutional: Fatigue. absent: Fevers Respiratory: Normal Cardiovascular: Normal Gastrointestinal: Normal. absent: Abdominal Pain, Nausea, Vomiting Genitourinary Female: Frequency. absent: Dysuria, Hematuria Neurological: Other (general weakness). absent: Headache, Dizziness Physical Exam Vital Signs Reviewed: Yes Vital Signs Temp Pulse Resp BP Pulse Ox 11/19/18 08:48 74 18 141/75 96 11/19/18 08:30 98.3 F 72 16 141/75 99 Temperature: Afebrile Blood Pressure: Normal Pulse: Regular Respiratory Rate: Normal Appearance: Positive for: Ill-Appearing (chronically ill-appearing), Other (pale) Pain Distress: None Mental Status: Positive for: Alert and Oriented X 3 - Systems Exam Head: Present: Atraumatic, Normocephalic Pupils: Present: PERRL Extroacular Muscles: Present: EOMI Conjunctiva: Present: Normal Ears: Present: NORMAL TM, Normal Canal. No: Erythema, TM Bulging Mouth: Present: Moist Mucous Membranes Pharnyx: No: ERYTHEMA, EXUDATE, TONSILS ENLARGED Neck: Present: Normal Range of Motion. No: MIDLINE TENDERNESS, Paraspinal Tenderness Respiratory/Chest: Present: Clear to Auscultation, Good Air Exchange. No: Respiratory Distress, Accessory Muscle Use Cardiovascular: Present: Regular Rate and Rhythm, Murmurs (grade 2/6 systolic ejection murmur) Abdomen: No: Tenderness, Distention, Peritoneal Signs, Rebound, Guarding Back: Present: Normal Inspection Upper Extremity: Present: Normal Inspection. No: Cyanosis, Edema Lower Extremity: Present: Normal Inspection. No: Edema Neurological: Present: GCS=15, CN II-XII Intact, Speech Normal, Motor Func Grossly Intact Skin: Present: Warm, Dry, Normal Color. No: Rashes Psychiatric: Present: Alert, Oriented x 3, Normal Insight, Normal Concentration Medical Decision Making ED Course and Treatment: 11/19/18 08:55 Impression: 88 year old female presents to the Emergency department complaining of general weakness and fatigue x 2 weeks. Plan: -- VBG -- EKG -- Cardiac ISO -- Chest X-ray -- Urinalysis -- Labs -- Reassess and disposition Progress Notes: 11/19/18 09:55 CXR reviewed, shows: Impression: No Active Disease. 11/19/18 11:[address] Yariel Bhatt, who is aware and agrees with plan. Patient will have regular admission. 11/19/18 11:13 Patient will probably need rehabilitation. 11/19/18 11:44 EKG shows normal sinus rhythm rate approximately 75 with poor R-wave progression and no acute ST or T-wave changes. - RAD Interpretation Radiology Orders: 11/19/18 08:26 CHEST PORTABLE [RAD] Stat - Scribe Statement The provider has reviewed the documentation as recorded by the Scribe Raven Deluca All medical record entries made by the Scribe were at my direction and personally dictated by me. I have reviewed the chart and agree that the record accurately reflects my personal performance of the history, physical exam, medical decision making, and the department course for this patient. I have also personally directed, reviewed, and agree with the discharge instructions and disposition. Disposition/Present on Arrival - Present on Arrival Any Indicators Present on Arrival: No History of DVT/PE: No History of Uncontrolled Diabetes: No Urinary Catheter: Yes History of Decub. Ulcer: No History Surgical Site Infection Following: Orthopedic Procedures - Disposition Have Diagnosis and Disposition been Completed?: Yes Diagnosis: UTI (urinary tract infection), Leukocytosis, Weakness Disposition: HOSPITALIZED Disposition Time: 11:13 Patient Plan: Admission Patient Problems: Current Active Problems Problem Status Onset Leukocytosis Acute UTI (urinary tract infection) Acute Weakness Acute Condition: GOOD Discharge Instructions (ExitCare): Weakness (ED) Referrals: Kwan Bhatt MD [Primary Care Provider] - Follow up with primary Forms: [employer] (Lao)
[2018-11-19 09:08] LABS: ALB/GLOB RATIO 1.2 (1.1-1.8); ALT/SGPT 17 U/L (7-56); AST/SGOT 26 U/L (14-36); BLOOD UREA NITROGEN 20 mg/dL (7-21); CALCIUM 10.2 mg/dL (8.4-10.5); GFR NON-AFRICAN AMERICAN > 60
[2018-11-19 09:20] LABS: TROPONIN I < 0.01 ng/mL
--- NOTE | 2018-11-19 09:44 | RAD ---
Date of service: 11/19/2018 HISTORY: weak COMPARISON: 01/25/2018 FINDINGS: LUNGS: No active pulmonary disease. PLEURA: No significant pleural effusion identified, no pneumothorax apparent. CARDIOVASCULAR: Aortic calcification Normal cardiac size. No pulmonary vascular congestion. OSSEOUS STRUCTURES: No significant abnormalities. VISUALIZED UPPER ABDOMEN: Normal. OTHER FINDINGS: None. IMPRESSION: No active disease.
[2018-11-19 10:27] LABS: URINE BILIRUBIN NEGATIVE (NEGATIVE); URINE BLOOD NEGATIVE (NEGATIVE); URINE GLUCOSE (UA) NEGATIVE (NEGATIVE); URINE LEUKOCYTE ESTERASE MODERATE Leu/uL (NEGATIVE); URINE PROTEIN TRACE mg/dL (<30 mg/dL); URINE UROBILINOGEN 0.2 E.U./dL (<1 E.U./dL)
[2018-11-19 10:49] LABS: URINE COLOR YELLOW (YELLOW)
[2018-11-19 10:50] LABS: URINE APPEARANCE CLEAR (CLEAR)
[2018-11-19 10:54] LABS: URINE WBC 20 - 25 /hpf (0-6)
[2018-11-19 10:55] LABS: URINE BACTERIA MANY /hpf; URINE EPITHELIAL CELLS MANY /hpf (0-5)
[2018-11-19] MEDS ORDERED: cefTRIAXone 1 gm 1 GM/100 ML BAG IVPB STA (10:56)
--- NOTE | 2018-11-19 12:50 | CARD ---
APPROVED REPORT Date of service: 11/19/2018 EKG Measurement Heart [id number] <Conclusion> Normal sinus rhythm Poor R wave progression in Precordial leads Abnormal ECG
[2018-11-19] MEDS ORDERED: Pneumococcal 23-Valent Vaccine IM ONE (22:14)
[2018-11-19] MEDS ORDERED: Influenza Vaccine 60 mcg/0.5 mL SYR (4YR UP) IM ONE (22:14)
[2018-11-20 07:44] LABS: BASO # 0.02 K/mm3 (0.0-2.0); BASO % 0.2 % (0.0-3.0); EOS # 0.2 (0.0-0.7); EOS % 1.4 % (1.5-5.0); GRAN # 8.96 (1.4-6.5); GRAN % 78.6 % (50.0-68.0); HEMOGLOBIN 11.8 g/dL (12.0-16.0); LYMPH # 1.5 (1.2-3.4); LYMPH % 13.5 % (22.0-35.0); MEAN CELL VOLUME 93.8 fl (80.0-105.0); MEAN CORPUSCULAR HEMOGLOBIN 30.3 pg (25.0-35.0); MEAN CORPUSCULAR HGB CONC 32.2 g/dl (31.0-37.0); MEAN PLATELET VOLUME 11.6 fl (7.0-11.0); MONO # 0.7 (0.1-0.6); MONO % 6.3 % (1.0-6.0); RBC 3.9 10^6/uL (3.5-6.1); RED CELL DISTRIBUTION WIDTH 13.4 % (11.5-14.5); WHITE BLOOD COUNT 11.4 10^3/uL (4.5-11.0)
[2018-11-20 08:05] LABS: ALB/GLOB RATIO 1.2 (1.1-1.8); ALBUMIN 4.1 g/dL (3.0-4.8); ALT/SGPT 9 U/L (7-56); AST/SGOT 26 U/L (14-36); BLOOD UREA NITROGEN 18 mg/dL (7-21); CALCIUM 10.8 mg/dL (8.4-10.5); GFR NON-AFRICAN AMERICAN 59
[2018-11-20 09:06] VITALS: BP 167/97; PULSE 88; RESP 20; TEMP 98.6; O2SAT 94
[2018-11-20] MEDS ORDERED: CELECOXIB 200 MG PO SCH (10:00)
[2018-11-20] MEDS ORDERED: levoFLOXacin 500 mg in D5W 500 MG/100 ML BAG IVPB SCH (10:00)
[2018-11-21] MEDS ORDERED: levoFLOXacin 250 mg in D5W 250 MG/50 ML BAG IVPB SCH (10:00)
== END 2018-11-20 18:02 | disposition home or self-care (01) ==
LOC: ED 08:05 → ERH 15:38 → 5RNO 18:17
PROVIDERS: ADMIT Internal Medicine; ATTEND Internal Medicine
DX: N39.0 Urinary tract infection, site not specified (principal); M25.511 Pain in right shoulder; R53.83 Other fatigue; R53.1 Weakness
CPT/HCPCS: 36415; 71045; 80053; 81001; 82550; 82803; 83615; 83735; 84100; 84443; 84484; 85025; 87086; 93005; 96365; 99285; G0378; J0696

== ENCOUNTER 2018-11-26 07:25 | Emergency (ER) | payer MEDICARE ==
[2018-11-26 07:27] VITALS: BMI 24.7
[2018-11-26 07:37] VITALS: TEMP 97.7
--- NOTE | 2018-11-26 07:47 | ED PDOC ---
Physical Exam Vital Signs Temp Pulse Resp BP Pulse Ox 11/26/18 07:35 97.7 F 100 H 18 181/80 H 96 Disposition/Present on Arrival - Present on Arrival History of DVT/PE: No History of Uncontrolled Diabetes: No Urinary Catheter: Yes History of Decub. Ulcer: No History Surgical Site Infection Following: Orthopedic Procedures - Disposition
[2018-11-26] MEDS ORDERED: Oxycodone/Acetaminophen 5/325 mg Tab PO STA (08:24)
--- NOTE | 2018-11-26 08:34 | ED PDOC ---
Arrival/HPI - General Historian: Patient - History of Present Illness Narrative History of Present Illness (Text): 11/26/18 08:27 Emergency department HPI, Tito Brothers PGY1 Patient is an 88 year old female with PMH of hypertension [facility] pain and bilateral hand pain that has been chronic but flared up about 1 month ago. Patient received prednisone of unknown dose to the Patient for 1 week, which she completed about 1 month ago. Per Patient, this improved her pain. Patient describes the pain as achy, burning, and non-radiating. Patient quantifies the pain at 10/10 in severity and the pain is constant. Patient states the pain is worst at night and throughout the morning. Patient states she was prescribed Celecoxib 200mg PO by her physician, however the pain does not improve with this medication. Patient admits to tingling in hands, however she denies numbness. ROS otherwise unremarkable for headache, fever, chills, nausea, vomiting, diarrhea, constipation, chest pain, shortness of breath, abdominal pain, and/or recent fall. 11/26/18 08:34 Time/Duration: > month Symptom Onset: Gradual Symptom Course: Worsening Quality: Aching, Burning Severity Level: 10 Activities at Onset: Sleeping Modifying Factors (Text): 11/26/18 08:35 Improved with prednisone in the past Does not improve with Tylenol and/or celecoxib Context: Walking Associated Symptoms (Text): 11/26/18 08:35 tingling in upper extremities <Tito Brothers - Last Filed: 11/26/18 10:27> <Les Stratton - Last Filed: 11/26/18 10:49> - General Chief Complaint: Upper Extremity Problem/Injury Past Medical History - Provider Review Nursing Documentation Reviewed: Yes - Travel History Have you recently traveled outside [place] w/in the past 3 mons?: No - Past History Past History: Non-Contributing - Infectious Disease Hx of Infectious Diseases: None - Reproductive Menopause: Yes - Cardiac Hx Cardiac Disorders: Yes Hx Hypertension: Yes Hx Pacemaker: No - Pulmonary Hx Respiratory Disorders: No - Neurological Hx Neurological Disorder: Yes - HEENT Hx HEENT Disorder: Yes Hx Cataracts: Yes Hx Macular Degeneration: Yes (RIGHT EYE WITH MONTHL INJECTIONS.) - Renal Hx Renal Disorder: No - Endocrine/Metabolic Hx Endocrine Disorders: No - Hematological/Oncological Hx Blood Disorders: Yes Hx Cancer: Yes (BASAL CELL CA) - Integumentary Hx Dermatological Disorder: No - Musculoskeletal/Rheumatological Hx Musculoskeletal Disorders: Yes Hx Falls: Yes - Gastrointestinal Hx Gastrointestinal Disorders: Yes (DIVERTICULOSIS) Hx Diverticulitis: Yes Hx Gastroesophageal Reflux: Yes - Genitourinary/Gynecological Hx Genitourinary Disorders: Yes Hx Urinary Tract Infection: Yes - Psychiatric Hx Emotional Abuse: No Hx Physical Abuse: No Hx Substance Use: No - Surgical History Hx Cataract Extraction: Yes - Anesthesia Hx Anesthesia Reactions: No Hx Malignant Hyperthermia: No - Suicidal Assessment Feels Threatened In Home Enviroment: No <Tito Brothers - Last Filed: 11/26/18 10:27> Family/Social History - Physician Review Nursing Documentation Reviewed: Yes Family/Social History: Hypertension, CAD/MT Smoking Status: Never Smoked Hx Alcohol Use: No Hx Substance Use: No <Tito Brothers - Last Filed: 11/26/18 10:27> Allergies/Home Meds <Tito Brothers - Last Filed: 11/26/18 10:27> <Les Stratton - Last Filed: 11/26/18 10:49> Allergies/Adverse Reactions: Allergies No Known Allergies Allergy (Verified 11/26/18 07:37) VERIFIED WITH NPATIENT Home Medications: Home Meds Medication Instructions Recorded Confirmed Celecoxib [Celebrex] 200 mg PO DAILY 11/19/18 11/26/18 Metoprolol Tartrate [Lopressor] 25 mg PO BID 11/19/18 11/26/18 Review of Systems - Review of Systems Constitutional: Normal Eyes: Normal ENT: Normal Respiratory: Normal Cardiovascular: Normal Gastrointestinal: Normal Genitourinary Female: Normal Musculoskeletal: Arthralgias Skin: Normal Neurological: Normal Endocrine: Normal Hemo/Lymphatic: Normal Psychiatric: Normal <Tito Brothers - Last Filed: 11/26/18 10:27> Physical Exam Vital Signs Temp Pulse Resp BP Pulse Ox 11/26/18 07:35 97.7 F 100 H 18 181/80 H 96 Temperature: Afebrile Blood Pressure: Hypertensive Pulse: Tachycardic Respiratory Rate: Normal Appearance: Positive for: Well-Appearing, Uncomfortable Pain Distress: Moderate Mental Status: Positive for: Alert and Oriented X 3 - Systems Exam Head: Present: Atraumatic, Normocephalic. No: Tenderness Pupils: Present: PERRL Extroacular Muscles: Present: EOMI Conjunctiva: Present: Normal Mouth: Present: Moist Mucous Membranes Pharnyx: Present: Normal Nose (External): Present: Atraumatic Nose (Internal): Present: Normal Inspection Neck: Present: Normal Range of Motion Respiratory/Chest: Present: Clear to Auscultation Cardiovascular: Present: Regular Rate and Rhythm Abdomen: Present: Normal Bowel Sounds. No: Tenderness, Distention, Peritoneal Signs, Guarding Back: Present: Normal Inspection. No: CVA Tenderness, Pain with Leg Raise Upper Extremity: Present: Normal Inspection, Neurovascularly Intact. No: Cyanosis, Edema, Normal ROM (decreased range of motion in abduction and flexion bilateral shoulder), Swelling, Erythema Lower Extremity: Present: Normal Inspection. No: Edema, CALF TENDERNESS Neurological: Present: GCS=15, CN II-XII Intact, Speech Normal Skin: Present: Warm, Dry, Normal Color. No: Rashes Psychiatric: Present: Alert, Oriented x 3, Normal Insight, Normal Concentration <Tito Brothers - Last Filed: 11/26/18 10:27> Vital Signs Temp Pulse Resp BP Pulse Ox 11/26/18 07:35 97.7 F 100 H 18 181/80 H 96 <Les Stratton - Last Filed: 11/26/18 10:49> Medical Decision Making ED Course and Treatment: 11/26/18 08:40 Assessment: Rotator cuff injury Plan: Bilateral shoulder x-ray Cervical CT Percocet 5/325 Toradol 60mg IM given once Arm slip applied Lidocaine patch Reassessment Condition: Improving,but remains with symptoms - RAD Interpretation Radiology Orders: 11/26/18 08:19 CERVICAL SPINE W/O CONTRAST [CT] Stat SHOULDER LEFT [RAD] Stat SHOULDER RIGHT [RAD] Stat Outside Plant Technician: Radiologist - EKG Interpretation Interpreted by ED Physician: Yes Type: 12 lead EKG - Medication Orders Current Medication Orders: Discontinued Medications Oxycodone/Acetaminophen (Percocet 5/325 Mg Tab) 1 tab PO STAT STA Stop: 11/26/18 08:25 <Tito Brothers - Last Filed: 11/26/18 10:27> ED Course and Treatment: 11/26/18 10:40 patient seen and examined by myself. patient with significant right shoulder pain, clearly exacerbated with active ROM, localized to the right shoulder/deltoid area in all angles of motion. clinical presentation appears most suggestive of rotator cuff injury. pain in the left shoulder has completely resolved after dose of percocet. patient states that she would rather go home and follow up with an orthopedic surgeon. - RAD Interpretation Radiology Orders: 11/26/18 08:19 CERVICAL SPINE W/O CONTRAST [CT] Stat SHOULDER LEFT [RAD] Stat SHOULDER RIGHT [RAD] Stat - EKG Interpretation EKG Interpretation (Text): 11/26/18 10:48 [id number] my read: nsr at 81 bpm, nml qrs, nml axis, no acute sttw abn - Medication Orders Current Medication Orders: Discontinued Medications Ketorolac Tromethamine (Toradol) 60 mg IM STAT STA Stop: 11/26/18 10:26 Lidocaine (Lidoderm) 1 ea TD DAILY STA Stop: 11/26/18 10:28 Oxycodone/Acetaminophen (Percocet 5/325 Mg Tab) 1 tab PO STAT STA Stop: 11/26/18 08:25 Last Admin: 11/26/18 09:18 Dose: 1 tab MAR Pain Assessment Document 11/26/18 09:18 SUNG (Rec: 11/26/18 09:18 SUNG [id number]) Pain Reassessment Is this a pain reassessment? No Sleep Is patient sleeping during reassessment? No Presence of Pain Presence of Pain Yes <Les Stratton - Last Filed: 11/26/18 10:49> Disposition/Present on Arrival - Present on Arrival Any Indicators Present on Arrival: Yes History of DVT/PE: No History of Uncontrolled Diabetes: No Urinary Catheter: Yes History of Decub. Ulcer: No History Surgical Site Infection Following: Orthopedic Procedures - Disposition Have Diagnosis and Disposition been Completed?: Yes Disposition Time: 10:30 Patient Plan: Discharge <Tito Brothers - Last Filed: 11/26/18 10:27> - Present on Arrival Any Indicators Present on Arrival: No <Les Stratton - Last Filed: 11/26/18 10:49> - Disposition Diagnosis: Rotator cuff injury Disposition: HOME/ ROUTINE Patient Problems: Current Active Problems Problem Status Onset Rotator cuff injury Acute Condition: FAIR Discharge Instructions (ExitCare): Shoulder Sprain, Rotator Cuff Injury (DC) Additional Instructions: Please follow-up with PMD today at your scheduled appointment If you continue to experience symptoms or if symptoms return, go to your nearest ED immediately Prescriptions: Ibuprofen [Motrin Tab] 800 mg PO TID #42 tab Lidocaine 5% [Lidoderm] 1 ea TD Q12H #14 patch oxyCODONE/Acetaminophen [Percocet 5/325 mg Tab] 1 ea PO QID #20 tab Sennosides/Docusate Sodium [Colace 2-in-1 Tablet] 2 each PO BID 7 Days #14 tablet Referrals: [facility] [Outside] - Follow up with primary Robin Matthews MD [Staff Provider] - Follow up with primary Forms: LYSOGENE (Frisian)
--- NOTE | 2018-11-26 09:15 | CT ---
Date of service: 11/26/2018 PROCEDURE: CT Cervical Spine without contrast HISTORY: pain, stenosis COMPARISON: None available. TECHNIQUE: Axial computed tomography images were obtained of the cervical spine without the use of intravenous contrast. Coronal and sagittal reformatted images were created and reviewed. Radiation dose: Total exam DLP = 420.43 mGy-cm. This CT exam was performed using one or more of the following dose reduction techniques: Automated exposure control, adjustment of the mA and/or kV according to patient size, and/or use of iterative reconstruction technique. FINDINGS: VERTEBRAE: No fracture. Normal alignment. No destructive bony lesion. DISCS/SPINAL CANAL/NEURAL FORAMINA: No significant central canal or neural foraminal stenosis. Mild disc degenerative change C2-3, C3-4, to lesser extent C5-6 C6-7. PARASPINAL SOFT TISSUES: Unremarkable. OTHER FINDINGS: None. IMPRESSION: No acute findings related to/ accounting for the clinical presentation. Mild degenerative disc disease. No evidence of canal stenosis.
--- NOTE | 2018-11-26 09:50 | RAD ---
Date of service: 11/26/2018 PROCEDURE: Radiographs of the Left Shoulder HISTORY: pain COMPARISON: No prior. FINDINGS: BONES: Normal. No fracture. JOINTS: Normal. Glenohumeral and acromioclavicular joints preserved. No osteoarthritis. SOFT TISSUES: Normal. OTHER FINDINGS: None. IMPRESSION: Normal radiographs of the left shoulder.
--- NOTE | 2018-11-26 09:53 | RAD ---
Date of service: 11/26/2018 PROCEDURE: Radiographs of the Right Shoulder HISTORY: pain COMPARISON: No prior. FINDINGS: BONES: Normal. No fracture. JOINTS: Normal. Glenohumeral and acromioclavicular joints preserved. No osteoarthritis. Minimal degenerative changes along the superior aspect of the humeral head SOFT TISSUES: Normal. OTHER FINDINGS: None. IMPRESSION: No acute findings
[2018-11-26] MEDS ORDERED: Lidocaine 5% Patch TD STA (10:27)
[2018-11-26 11:57] VITALS: O2SAT 98
[2018-11-26 12:11] VITALS: BP 128/90; PULSE 90; RESP 20
--- NOTE | 2018-11-27 11:13 | CARD ---
APPROVED REPORT Date of service: 11/26/2018 EKG Measurement Heart [id number] <Conclusion> Normal sinus rhythm Normal ECG
== END 2018-11-26 12:15 | disposition home or self-care (01) ==
LOC: ED 07:25
DX: S46.002A Unspecified injury of muscle(s) and tendon(s) of the rotator cuff of left shoulder, initial encounter (principal); S46.001A Unspecified injury of muscle(s) and tendon(s) of the rotator cuff of right shoulder, initial encounter; X58.XXXA Exposure to other specified factors, initial encounter; I10 Essential (primary) hypertension
CPT/HCPCS: 72125; 73030; 93005; 96372; 99282; J1885

== ENCOUNTER 2019-01-18 15:37 | Inpatient (IN) | payer MEDICARE | END 2019-01-21 14:25 | disposition home or self-care (01) | LOC: ED 15:37 → ERH 17:54 → 3RNO 20:19 ==